=== PATIENT | male | born 1970 | race Caucasian/White ===

== ENCOUNTER 2025-01-12 10:00 | Outpatient (RCR) | payer BC, SELFPAY | END 2025-05-12 23:59 | disposition home or self-care (01) | PROVIDERS: PCP Family Medicine; Visit Provider Family Medicine | DX: I89.0 Lymphedema, not elsewhere classified (principal); E66.9 Obesity, unspecified; L03.115 Cellulitis of right lower limb; L03.116 Cellulitis of left lower limb; Z51.89 Encounter for other specified aftercare | CPT/HCPCS: 97140; 97165; 97535; A9270 ==